=== PATIENT | male | born 1985 | race African-American/Black ===

== ENCOUNTER 2017-10-28 02:53 | Emergency (ER) | payer SELFPAY ==
[~2017-10-28 02:53] MED LIST: PERM5CRE4 TOP; Z.0.NO CURRENT MEDS
[2017-10-28 03:01] VITALS: BP 136/85; PULSE 72; RESP 16; TEMP 97.9; O2SAT 98
--- NOTE | 2017-10-28 04:01 | PD ---
HPI Chief Complaint: Fall Time Seen by Provider: 03:52 Travel History International Travel<30 days: No Contact w/Intl Traveler<30days: No Traveled to known affect area: No History of Present Illness HPI Patient is a 32-year-old male presenting to the emergency department for evaluation of left elbow and lower back pain after sustaining a mechanical fall in the shower. Patient states he slipped landing on his elbow and hurting his tailbone. Injury occurred approximately 1 hour prior to arrival. He denies any head injury or loss of consciousness. Patient reports his pain is a 6 out of 10, he states is sore and aching. Pain is worse with movement. Patient is ambulatory emergency department. Symptom onset was sudden, symptoms are moderate in nature. There are no alleviating factors. Patient reported that he took ibuprofen prior to arrival. [facility] Past Medical History Medical History: Denies Significant Hx Diminished Hearing: No Past Surgical History Surgical History: No Previous Surgery Social History Alcohol Use: No Tobacco Use: No Substance Use: No Allergies-Medications (Allergen,Severity, Reaction): Coded Allergies: No Known Allergies (Verified , 11/02/10) Reported Meds & Prescriptions Reported Meds & Active Scripts Active No Active Prescriptions or Reported Medications Review of Systems Except as stated in HPI: all other systems reviewed are Neg Musculoskeletal: Positive: Pain Physical Exam Narrative GENERAL: Obese, well-developed, alert -[place] male. Presenting in no acute distress. SKIN: Warm and dry. HEAD: Atraumatic. Normocephalic. EYES: Pupils equal and round. No scleral icterus. No injection or drainage. ENT: No nasal bleeding or discharge. Mucous membranes pink and moist. NECK: Trachea midline. No JVD. CARDIOVASCULAR: Regular rate and rhythm. RESPIRATORY: No accessory muscle use. Clear to auscultation. Breath sounds equal bilaterally. GASTROINTESTINAL: Abdomen soft, non-tender, nondistended. Hepatic and splenic margins not palpable. MUSCULOSKELETAL: Extremities without clubbing, cyanosis, or edema. No obvious deformities. No abrasions, contusions or lesions to left elbow. Full range of motion with flexion and extension. 2+ radial pulse. Tenderness to palpation in the lower lumbar and sacral spine. No step-off noted NEUROLOGICAL: Awake and alert. No obvious cranial nerve deficits. Motor grossly within normal limits. Five out of 5 muscle strength in the arms and legs. Normal speech. PSYCHIATRIC: Appropriate mood and affect; insight and judgment normal. Data Data Last Documented VS Vital Signs Date Time Temp Pulse Resp B/P (MAP) Pulse Ox O2 Delivery O2 Flow Rate FiO2 10/28/17 03:01 97.9 72 16 136/85 (102) 98 Orders Orders Spine, Lumbar - Ltd (Ap & Lat) (10/28/17 ) Sacrum And Coccyx (10/28/17 ) MDM Medical Decision Making Medical Screen Exam Complete: Yes Emergency Medical Condition: Yes Interpretation(s) Vital Signs Date Time Temp Pulse Resp B/P (MAP) Pulse Ox O2 Delivery O2 Flow Rate FiO2 10/28/17 03:01 97.9 72 16 136/85 (102) 98 Differential Diagnosis Fracture versus sprain versus strain versus radiculopathy versus contusion versus other Narrative Course Patient is a well-appearing 32-year-old male presenting for evaluation of left elbow and sacral pain after falling. Patient's vital signs are stable. He had mild spinal tenderness in the sacral area, will obtain imaging. Elbow is unremarkable, he is full range of motion, he is neurovascularly intact and there is no obvious deformities, there are no abrasions or contusions to suggest any other injury as well. X-rays of the lumbar, sacrum and coccyx are negative for acute abnormality. Patient will be provided with a prescription for ibuprofen. He is encouraged to apply warm heat to the affected area. He can follow-up with his primary doctor or return to emergency department for any new or worsening symptoms. He verbalized understanding of instructions. Patient stable for discharge. Diagnosis Primary Impression: Fall Qualified Codes: W19.XXXA - Unspecified fall, initial encounter Additional Impressions: Elbow pain, left Sacral back pain Lumbago Qualified Codes: M54.5 - Low back pain Referrals: Primary Care Physician Patient Instructions: Acute Low Back Pain (ED), General Instructions Additional Instructions: Follow-up with your primary doctor Take medication as needed as directed for pain Apply warm heat to the affected area Return to emergency department for any new worsening symptoms Med/Other Pt SpecificInfo: Prescription(s) given Scripts Ibuprofen (Ibuprofen) 800 Mg Tab 800 MG PO Q6HR Y for PAIN, #40 TAB 0 Refills Prov: Carli Reza 10/28/17 Disposition: 01 DISCHARGE HOME Condition: Stable Carli Reza Oct 28, 2017 04:01
--- NOTE | 2017-10-28 04:22 | RADRPT ---
EXAM DATE/TIME: 10/28/2017 04:04 [facility] COMPARISON: No previous studies available for comparison. INDICATIONS : Lumbar spine pain post fall in shower. MEDICAL HISTORY : None. SURGICAL HISTORY : None. ENCOUNTER: Initial ACUITY: 1 day PAIN SCORE: 7/10 LOCATION: Bilateral lumbar spine FINDINGS: 3 views of the lumbar spine. Vertebral body height and shape within normal limits. Alignment within n ormal limits. CONCLUSION: No evidence of fracture. Bony Campbell MD on October 28, 2017 at 4:20 Board Certified Radiologist. This report was verified electronically.
--- NOTE | 2017-10-28 04:23 | RADRPT ---
EXAM DATE/TIME: 10/28/2017 04:05 [facility] COMPARISON: No previous studies available for comparison. INDICATIONS : Sacrum/coccyx pain post fall in shower. MEDICAL HISTORY : None. SURGICAL HISTORY : None. ENCOUNTER: Initial ACUITY: 1 day PAIN SCORE: 8/10 LOCATION: Bilateral buttock FINDINGS: 3 views of the sacrum and coccyx. Bone alignment within normal limits. No evidence of fracture. CONCLUSION: No evidence of fracture. Bony Campbell MD on October 28, 2017 at 4:20 Board Certified Radiologist. This report was verified electronically.
[2017-10-28] MEDS ORDERED: IBUP1TAB7 PO (04:30)
== END 2017-10-28 04:33 | disposition home or self-care (01) ==
LOC: NEPD 02:53
DX: M25.522 Pain in left elbow (principal); M53.3 Sacrococcygeal disorders, not elsewhere classified; M54.5 Low back pain; W01.0XXA Fall on same level from slipping, tripping and stumbling without subsequent striking against object, initial encounter
CPT/HCPCS: 72100; 72220; 99283